=== PATIENT | female | born 1940 | race Caucasian/White ===

== ENCOUNTER 2017-11-10 15:49 | Inpatient (IN) | payer OTHER ==
--- OUTSIDE RECORDS SUMMARY | 2017-11-10 15:51 | XMS REPORT ---
:1940 Author Organization [employer] Care Team Providers Name Role Phone Bernarda Simpson Provider Role Unavailable Allergies, Adverse Reactions, Alerts Substance Reaction Event Type N.K.D.A. Info Not Available Non Drug Allergy Problems Problem Type Condition Code Onset Dates Condition Status Problem Type 2 diabetes mellitus without E11.9 Active complication, unspecified whether signal tester insulin use Problem Uncomplicated asthma, unspecified J45.909 Active asthma severity, unspecified whether persistent Problem Acute memory impairment R41.3 Active Problem Chronic depression F32.9 Active Assessment Muscle weakness M62.81 Active Problem Osteoarthritis of multiple joints, M15.9 Active unspecified osteoarthritis type Assessment Falls frequently R29.6 Active Problem Morbid (severe) obesity due to E66.01 Active excess calories Problem Body mass index (BMI) of 40.0-44.9 Z68.41 Active in adult Problem Dementia arising in the senium and F03.90 Active presenium Problem Hyperlipidemia, unspecified E78.5 Active hyperlipidemia type Problem Edema, unspecified type R60.9 Active Assessment Type 2 diabetes mellitus without E11.9 Active complication, unspecified whether prison insulin use Problem Falls frequently R29.6 Active Assessment Syncope and collapse R55 Active Assessment Essential (primary) hypertension I10 Active Problem Restless legs syndrome G25.81 Active Problem Essential (primary) hypertension I10 Active Problem Disc disorder M51.9 Active Problem Cough R05 Active Problem Acute upper respiratory infection J06.9 Active Problem Other specified diabetes mellitus E13.42 Active with diabetic polyneuropathy, unspecified whether signal tester insulin use Medications Medication Code Code Instructions Start End Status Dosage System Date Date Zoloft ND 24911980006 100 MG Orally May 12, Active 1 tablet Once a day 2015 Triamcinolone ND 0 0.025 % May 28, Active 1 application & Emollient Externally TID 2014 [place] [facility] 98708945691 10-325 MG May 28, Active 1 tablet as Orally every 6 2014 needed hrs Xarelto ND 99141881115 15 MG Orally Aug 05, Active 1 tablet with Once a day 2014 food Azithromycin NDC 32647761477 250 MG Orally Jul 22, Active 2 tablets on Once a day 2016 the first day, then 1 tablet daily for 4 days Requip NDC 83920126036 0.5 MG Orally May 28, Active 1 tablet 1 to Once a day 2014 3 hours before bedtime Os-Joe Ultra NDC 36297026001 600 MG Orally May 28, Active 1-2 tablet once a day 2014 with meals Lisinopril NDC 81927448353 20 MG Orally Apr Active 1 tablet Once a day 2016 Potassium NDC 35377414285 20 MEQ Orally Active 1 tablet with Chloride ER Once a day food Gabapentin NDC 99489618509 300 MG Orally October Active 1 capsule Once a day , before 2016 bedtime Tessalon Perles NDC 84509957106 100 MG Orally Jul 22, Active 1 capsule as Three times a 2016 needed day Nexium NDC 42904967820 20 MG Orally September Active 1 capsule Once a day 2015 Simvastatin NDC 18080567520 40 MG Orally May 28, Active 1 tablet in Once a day 2014 the evening Exelon 13.3 NDC 88862367943 13.3 MG/24HR May 28, Active 1 patch to Transdermal 2014 skin Once a day Namenda XR NDC 66124279653 28 MG Orally May 28, Active 1 capsule Once a day x 30 2014 days Albuterol ND 74114733611 108 (90 Base) Sep 09, Active 2 puffs as Sulfate HFA MCG/ACT 2016 needed Inhalation every 6 hrs Furosemide NDC 46151709755 20 MG Orally May 28, Active 1 tablet Once a day-a.m. 2014 Ditropan NDC 0 5 MG Orally BID May 28, Active 1 tablet 2014 Zanaflex ND 99007436072 4 MG Orally May 28, Active 1 tablet as Three times a 2014 needed day Rozerem NDC 36894631608 8 MG Orally Jun 13, Active 1 tablet at Once a day 2014 bedtime as needed Results Name Result Date Reference Range Unit Abnormality Flag GLUCOSE FINGER ----Result 102 [id number] Summary Purpose eClinicalWorks Submission
[2017-11-10 16:43] LABS: Absolute Lymphocytes (CBC) 1.8 K/uL (0.7-4.9); Absolute Monocytes 0.5 K/uL (0.1-1.3); Absolute Neutrophil 4.6 K/uL (1.8-8.0); Basophils % 0.5 % (0-1.3); Eosinophils % 1.4 % (0-4.4); Hematocrit 38.3 % (36.0-45.0); Lymphocytes % 26.1 % (15.3-44.8); MCV 88.7 fL (80-100); MPV 8.2 fL (7.6-11.3); Monocytes % 7.2 % (3.3-12.3); RBC Red Blood Cell Count 4.32 M/uL (3.86-4.86)
[2017-11-10 16:57] LABS: Potassium 4.1 mEq/L (3.6-5.0)
[2017-11-10 16:59] LABS: Protime INR 1.57
[2017-11-10 17:03] LABS: Bilirubin Direct 0.1 mg/dL (0-0.2); Bilirubin Total 0.7 mg/dL (0.3-1.2); Magnesium 2.2 mg/dL (1.8-2.5); Protein, Total 6.8 g/dL (6.0-8.3)
--- NOTE | 2017-11-10 17:09 | RAD REPORT ---
EXAM DESCRIPTION: RAD - Pelvis - 11/10/2017 4:55 pm CLINICAL HISTORY: Pelvic pain status post injury FINDINGS: No fracture or dislocation is seen. The bones are osteoporotic. If the patient has clinical symptoms to suggest an occult fracture then M RI be recommended
--- NOTE | 2017-11-10 17:18 | RAD REPORT ---
EXAM DESCRIPTION: CT - Head C Spine Mpr Wo Con - 11/10/2017 4:41 pm CLINICAL HISTORY: Head and neck injury status post fall. Head and neck pain COMPARISON: 2011 MRI brain TECHNIQUE: Computed axial tomography of the head and cervical spine was obtained. Sagittal and coronal reconstruction was performed. All CT scans are performed using dose optimization technique as appropriate and may include automated exposure control or mA/KV adjustment according to patient size. FINDINGS: An intracranial bleed is not seen. The ventricles are normal in caliber. An extra-axial fl uid collection is not noted. Low-density area within the right temporal lobe with adjacent atrophy ma y be secondary to an old infarction. Fluid within the visualized sinuses and mastoids is not seen A cervical fracture is not visualized. No dislocation is noted. Spondylosis involves the cervical spi ne resulting in mild to moderate foraminal stenosis. Mild fullness is present within the posterior right tongue base. IMPRESSION: No acute intracranial abnormality is seen. A cervical fracture is not visualized. If the patient continues to have symptoms to suggest intracra nial /spinal cord pathology then MRI would be recommended Mild fullness within the posterior right tongue base is equivocal for a small mass. CT neck with IV c ontrast would be helpful for further evaluation
--- NOTE | 2017-11-10 17:20 | RAD REPORT ---
EXAM DESCRIPTION: [place] Single View11/10/2017 4:55 pm CLINICAL HISTORY: Chest pain COMPARISON: 2016 FINDINGS: The lungs appear clear of acute infiltrate. The heart is mildly enlarged. The mediastinum is mildly more prominent IMPRESSION: Prominence of the mediastinum most likely representing tortuous vessels appearing more p rominent secondary to positioning and technique. As an aneurysm/lymphadenopathy can have this appeara nce PA and lateral chest series is recommended
[2017-11-10 17:46] LABS: Urine Blood NEGATIVE (NEG); Urine Glucose NEGATIVE (NEG); Urine Protein NEGATIVE (NEG); Urine Specific Gravity <1.005 (1.005-1.030)
--- NOTE | 2017-11-10 17:51 | ER ---
Nurse's Notes [facility] Name: Joyce Mai Age: 77 yrs Sex: Female : 1940 Arrival Date: 11/10/2017 Time: 15:45 Bed 3 Private MD: Diagnosis: Fall;dizziness;transient hypotension;bradycardia Presentation: 11/10 15:51 Presenting complaint: EMS states: Pt seen by home health nurse this morning and was ph fine, this afternoon daughter reports that pt began to feel weak, and dizzy and fell, she took BP and reports 80s systolic, BP 118/76 for EMS, however pt bradycardic at 40 bpm which is abnormal for pt. Transition of care: patient was not received from another setting of care. Onset of symptoms was November 10, 2017. Care prior to arrival: IV initiated. 20 GA, in the left antecubital area, Glucose check: 121. 15:51 Method Of Arrival: EMS: [facility] ph 15:51 Acuity: VIOLETTA 2 ph Historical: - Allergies: 17:55 No Known Allergies; sg - Home Meds: 15:53 furosemide 40 mg Oral tab 1 tab once daily [Active]; esomeprazole magnesium 20 mg oral dm5 cpDR 1 cap once daily [Active]; lisinopril 20 mg Oral tab 1 tab once daily [Active]; memantine oral 28mg oral 1 cap once daily [Active]; ropinirole 0.5 mg oral tab 1 tab nightly [Active]; sertraline 100 mg oral tab 1 tab once daily [Active]; tizanidine 4 mg oral cap 1 cap twice a day [Active]; Xarelto 20 mg oral tab 1 tab once daily [Active]; simvastatin 40 mg Oral tab 1 tab once daily [Active]; gabapentin 300 mg oral cap 1 cap nightly [Active]; CertaVite with Lutein oral [Active]; Triamcinolone Acetonide Topical [Active]; - PSHx: 17:55 Hysterectomy; Tonsillectomy; ; sg - Immunization history:: Adult Immunizations unknown. - Social history:: Smoking status: Patient/guardian denies using tobacco. - Family history:: not pertinent. - Hospitalizations: : No recent hospitalization is reported. Screenin:59 Abuse screen: Denies threats or abuse. Denies injuries from another. Nutritional ph screening: No deficits noted. Tuberculosis screening: No symptoms or risk factors identified. Fall Risk Fall in past 12 months (25 points). Secondary diagnosis (15 points) dementia, IV access (20 points). Ambulatory Aid- None/Bed Rest/Nurse Assist (0 pts). Gait- Weak (10 pts.). Mental Status- Oriented to own ability (0 pts). Total Gross Fall Scale indicates High Risk Score (45 or more points). Fall prevention measures have been instituted. Side Rails Up X 2 Placed Close to Nursing Station Family Present and informed to notify staff if the need to leave the bedside As available patient and family educated on Fall Prevention Program and Strategies. Assessment: 16:06 General: Appears in no apparent distress. comfortable, well groomed, Behavior is calm, ph cooperative, appropriate for age, Denies fever, feeling ill. Pain: Denies pain. Neuro: Level of Consciousness is awake, alert, obeys commands, Oriented to person, place, situation, Reports dizziness, weakness. Cardiovascular: Reports fatigue, lightheadedness, Denies chest pain, nausea, shortness of breath, Capillary refill < 3 seconds in bilateral fingers Patient's skin is warm and dry. Cardiovascular: Pulses are 2+ in right posterior tibial artery and left posterior tibial artery. Respiratory: Airway is patent Respiratory effort is even, unlabored, Respiratory pattern is regular, symmetrical. Derm: Skin is intact, Skin is pink, warm \T\ dry. Musculoskeletal: Circulation, motion, and sensation intact. Range of motion: intact in all extremities. 17:00 Reassessment: Patient appears in no apparent distress at this time. Patient and/or sg family updated on plan of care and expected duration. Pain level reassessed. Patient is alert, oriented x 3, equal unlabored respirations, skin warm/dry/pink. Patient states feeling better. 18:19 Reassessment: Patient appears in no apparent distress at this time. Patient and/or sg family updated on plan of care and expected duration. Pain level reassessed. Patient is alert, oriented x 3, equal unlabored respirations, skin warm/dry/pink. attempted to call report for bed 411, Aydin stated that they just received a patient and the assignment has not been made, instructed to wait, pt and pt family updated on current status, stated understanding Patient states feeling better. 19:10 General: Appears in no apparent distress. comfortable, Behavior is calm, cooperative, tl2 appropriate for age, Denies feeling ill. Pain: Denies pain. Neuro: Level of Consciousness is awake, alert, obeys commands, Oriented to person, place, time, situation. Neuro: Reports dizziness. Cardiovascular: Denies chest pain. Cardiovascular: Rhythm is sinus bradycardia. Respiratory: Airway is patent Respiratory effort is even, unlabored, Respiratory pattern is regular, symmetrical. GI: No signs and/or symptoms were reported involving the gastrointestinal system. : No signs and/or symptoms were reported regarding the genitourinary system. Derm: Skin is pink, warm \T\ dry. 20:46 Reassessment: Patient appears in no apparent distress at this time. Patient and/or tl2 family updated on plan of care and expected duration. Pain level reassessed. Patient is alert, oriented x 3, equal unlabored respirations, skin warm/dry/pink. Pt stable and ready for transport to floor. Vital Signs: 15:57 BP 112 / 59; Pulse 41; Resp 18; Temp 98.0; Pulse Ox 100% on 2 lpm NC; Weight 102.06 kg; ph Height 5 ft. 3 in. (160.02 cm); 18:00 Pulse 46; Resp 19; Pulse Ox 98% ; Pain 0/10; sg 20:02 BP 140 / 94; Pulse 50; Resp 16; Pulse Ox 100% on 2 lpm NC; tl2 15:57 Body Mass Index 39.86 (102.06 kg, 160.02 cm) ph [place] Coma Score: 18:00 Eye Response: spontaneous(4). Verbal Response: oriented(5). Motor Response: obeys sg commands(6). Total: 15. ED Course: 15:45 Patient arrived in ED. dm5 15:49 Nima Lim MD is Attending Physician. wa 15:56 Triage completed. ph 15:58 Arm band placed on. ph 16:01 Patient has correct armband on for positive identification. Bed in low position. Call ph light in reach. Side rails up X 1. bus driver/monitor on. Pulse ox on. NIBP on. Warm blanket given. 16:06 Alisha Suresh RN is Primary Nurse. ph 16:10 Maintain EMS IV. Dressing intact. Good blood return noted. Site clean \T\ dry. Gauge \T\ sg site: 20 LAC. 16:20 Initial lab(s) drawn, by me, sent to lab. sg 16:20 No provider procedures requiring assistance completed. sg 16:40 CT Head C Spine In Process Unspecified. EDMS 16:51 X-ray completed. Patient tolerated procedure well. bb2 16:52 Patient moved back from CT. Patient moved back from radiology. bb2 16:52 Chest Single View XRAY In Process Unspecified. EDMS 16:52 Pelvis XRAY In Process Unspecified. EDMS 17:49 Fransisco Lezama MD is Hospitalizing Provider. wa 18:20 Patient admitted, IV remains in place. intact, No redness/swelling at site. sg Administered Medications: 17:54 Not Given (Patient Refused): Tylenol 1000 mg PO once sg Outcome: 17:50 Decision to Hospitalize by Provider. wa 20:46 Admitted to Tele accompanied by tech, via stretcher, room 411, with oxygen, with chart, tl2 Report called to YAN Givens 20:46 Condition: stable 20:46 Discharge instructions given to patient, Instructed on the need for admit. 20:48 Patient left the ED. tl2 Signatures: Dispatcher [employer] Guera Crisostomo RN RN dm5 Fidel Lange RN YAN Alisha Suresh RN YAN Alison Falcon RN RN tl2 Nima Lim MD MD wa Bock, Brittany bb2 Corrections: (The following items were deleted from the chart) 18:31 18:10 Maintain EMS IV. Dressing intact. Good blood return noted. Site clean \T\ dry. sg Gauge \T\ site: 20 LAC. sg 18:31 15:30 Initial lab(s) drawn, by me, sent to lab. sg sg
--- NOTE | 2017-11-10 17:51 | EDPHYS ---
Physician Documentation [facility] Name: Joyce Mai Age: 77 yrs Sex: Female : 1940 Arrival Date: 11/10/2017 Time: 15:45 Bed 3 Private MD: ED Physician Nima Lim HPI: 11/10 17:02 This 77 yrs old Female presents to ER via EMS with complaints of Dizziness. 17:02 This 77 yrs old Female presents to ER via EMS with complaints of Dizziness. 17:02 The patient presents with pt apparently became dizzy and weak and fell. per EMS, pt was wa noted with low BP and HR at their arrival. pt denies pain in ED. admits to mild SOB. denies dizziness on direct query. Onset: The symptoms/episode began/occurred just prior to arrival. Context: occurred at home, occurred while the patient was standing, just prior to the episode the patient experienced no apparent symptoms. Modifying factors: The symptoms are alleviated by nothing, the symptoms are aggravated by nothing. Associated signs and symptoms: Pertinent positives: shortness of breath, fall, Pertinent negatives: abdominal pain, agitation, headache. Severity of symptoms: At their worst the symptoms were moderate in the emergency department the symptoms are unchanged. Patient's baseline: Neuro: alert and fully oriented, Motor: no deficits, Ambulation: walks without assistance, Speech: normal. It is unknown whether or not the patient has had similar symptoms in the past. The patient has not recently seen a physician. Historical: - Allergies: 17:55 No Known Allergies; sg - Home Meds: 15:53 furosemide 40 mg Oral tab 1 tab once daily [Active]; esomeprazole magnesium 20 mg oral dm5 cpDR 1 cap once daily [Active]; lisinopril 20 mg Oral tab 1 tab once daily [Active]; memantine oral 28mg oral 1 cap once daily [Active]; ropinirole 0.5 mg oral tab 1 tab nightly [Active]; sertraline 100 mg oral tab 1 tab once daily [Active]; tizanidine 4 mg oral cap 1 cap twice a day [Active]; Xarelto 20 mg oral tab 1 tab once daily [Active]; simvastatin 40 mg Oral tab 1 tab once daily [Active]; gabapentin 300 mg oral cap 1 cap nightly [Active]; CertaVite with Lutein oral [Active]; Triamcinolone Acetonide Topical [Active]; - PSHx: 17:55 Hysterectomy; Tonsillectomy; ; sg - Immunization history:: Adult Immunizations unknown. - Social history:: Smoking status: Patient/guardian denies using tobacco. - Family history:: not pertinent. - Hospitalizations: : No recent hospitalization is reported. ROS: 17:06 Constitutional: Negative for fever, chills, and weight loss, Eyes: Negative for injury, wa pain, redness, and discharge, ENT: Negative for injury, pain, and discharge, Neck: Negative for injury, pain, and swelling, Cardiovascular: Negative for chest pain, palpitations, and edema, Abdomen/GI: Negative for abdominal pain, nausea, vomiting, diarrhea, and constipation, Back: Negative for injury and pain, : Negative for injury, bleeding, discharge, and swelling, MS/Extremity: Negative for injury and deformity, Skin: Negative for injury, rash, and discoloration, Psych: Negative for depression, anxiety, suicide ideation, homicidal ideation, and hallucinations. 17:06 Respiratory: Positive for shortness of breath, Negative for cough, dyspnea on exertion. 17:06 Neuro: Positive for dizziness, Negative for altered mental status, headache, loss of consciousness, syncope. 17:06 All other systems are negative. Exam: 17:07 Constitutional: This is a well developed, well nourished patient who is awake, alert, wa and in no acute distress. Head/Face: Normocephalic, atraumatic. Eyes: Pupils equal round and reactive to light, extra-ocular motions intact. Lids and lashes normal. Conjunctiva and sclera are non-icteric and not injected. Cornea within normal limits. Periorbital areas with no swelling, redness, or edema. ENT: Nares patent. No nasal discharge, no septal abnormalities noted. Tympanic membranes are normal and external auditory canals are clear. Oropharynx with no redness, swelling, or masses, exudates, or evidence of obstruction, uvula midline. Mucous membranes moist. Neck: Trachea midline, no thyromegaly or masses palpated, and no cervical lymphadenopathy. Supple, full range of motion without nuchal rigidity, or vertebral point tenderness. No Meningismus. Chest/axilla: Normal chest wall appearance and motion. Nontender with no deformity. No lesions are appreciated. Respiratory: Lungs have equal breath sounds bilaterally, clear to auscultation and percussion. No rales, rhonchi or wheezes noted. No increased work of breathing, no retractions or nasal flaring. Abdomen/GI: Soft, non-tender, with normal bowel sounds. No distension or tympany. No guarding or rebound. No evidence of tenderness throughout. Back: No spinal tenderness. No costovertebral tenderness. Full range of motion. Skin: Warm, dry with normal turgor. Normal color with no rashes, no lesions, and no evidence of cellulitis. MS/ Extremity: Pulses equal, no cyanosis. Neurovascular intact. Full, normal range of motion. Neuro: Awake and alert, GCS 15, oriented to person, place, time, and situation. Cranial nerves II-XII grossly intact. Motor strength 5/5 in all extremities. Sensory grossly intact. Cerebellar exam normal. Normal gait. 17:07 Cardiovascular: Rate: bradycardic, Rhythm: regular, Pulses: no pulse deficits are appreciated, Heart sounds: normal, Edema: is not appreciated, JVD: is not appreciated. Vital Signs: 15:57 BP 112 / 59; Pulse 41; Resp 18; Temp 98.0; Pulse Ox 100% on 2 lpm NC; Weight 102.06 kg; ph Height 5 ft. 3 in. (160.02 cm); 18:00 Pulse 46; Resp 19; Pulse Ox 98% ; Pain 0/10; sg 20:02 BP 140 / 94; Pulse 50; Resp 16; Pulse Ox 100% on 2 lpm NC; tl2 15:57 Body Mass Index 39.86 (102.06 kg, 160.02 cm) ph Maude Coma Score: 18:00 Eye Response: spontaneous(4). Verbal Response: oriented(5). Motor Response: obeys sg commands(6). Total: 15. MDM: 15:49 Patient medically screened. wa 17:08 Differential diagnosis: cardiac arrhythmia, CVA, generalized weakness, hypovolemia, wa idiopathic dizziness, near-syncope. 17:30 Data reviewed: vital signs, nurses notes, lab test result(s), EKG, radiologic studies. wa Test interpretation: by ED physician or midlevel provider: EKG: noted for HR 44. marked sinus bradycardia. head and C-spine CT: no acute process. pelvic x-ray: no fx. CXR: no acute process. Response to treatment: the patient's symptoms have markedly improved after treatment. Physician consultation:. 17:45 Test interpretation: by ED physician or midlevel provider: labs noted wnl. CXR, pelvic wa x-ray, head and c-spine CT noted with no acute process. will admit for obs. Physician consultation: Fransisco Lezama MD was contacted at 17:48. Admission orders: after a detailed discussion of the patient's condition and case, the admit orders are written by md. 11/10 16:16 Order name: Urine Microscopic Only; Complete Time: 19:01 11/10 16:16 Order name: Basic Metabolic Panel; Complete Time: 17:11/10 16:16 Order name: BNP; Complete Time: 17:11/10 16:16 Order name: CBC with Diff; Complete Time: 17:11/10 16:16 Order name: CPK; Complete Time: 17:11/10 16:16 Order name: Hepatic Function; Complete Time: 17:11/10 16:16 Order name: CT Head C Spine; Complete Time: 17:11/10 16:16 Order name: Lipase; Complete Time: 17:11/10 16:16 Order name: Magnesium; Complete Time: 17:11/10 16:16 Order name: Protime (+inr); Complete Time: 17:11/10 16:16 Order name: Troponin (emerg Dept Use Only); Complete Time: 17:11/10 16:16 Order name: Chest Single View XRAY; Complete Time: 17:11/10 16:16 Order name: Pelvis XRAY; Complete Time: 17:11/10 17:26 Order name: Urine Dipstick--Ancillary (enter results) [facility] 11/10 16:16 Order name: EKG; Complete Time: 16:16 11/10 16:16 Order name: Cardiac monitoring; Complete Time: 16:46 11/10 16:16 Order name: EKG - Nurse/Tech; Complete Time: 17:30 11/10 16:16 Order name: IV Saline Lock; Complete Time: 16:46 11/10 16:16 Order name: Labs collected and sent; Complete Time: 16:47 wv 11/10 16:16 Order name: NPO; Complete Time: 16:47 wv 11/10 16:16 Order name: O2 Per Protocol; Complete Time: 16: wv 11/10 16:16 Order name: O2 Sat Monitoring; Complete Time: 16:47 wv 11/10 16:16 Order name: Urine Dipstick-Ancillary (obtain specimen); Complete Time: 19:06 wv 11/10 17:54 Order name: Regular EDMS 11/10 17:57 Order name: Echo with Doppler EDMS Administered Medications: 17:54 Not Given (Patient Refused): Tylenol 1000 mg PO once sg Disposition: 11/10/17 17:50 Hospitalization ordered by Fransisco Lezama for Observation. Preliminary diagnosis are Fall, dizziness, transient hypotension, bradycardia. - Bed requested for Telemetry/MedSurg (observation). - Status is Observation. tl2 - Condition is Stable. - Problem is new. - Symptoms have improved. UTI on Admission? No Signatures: Dispatcher [employer] EDGuera Martin, RN RN dm5 Yojana Berger RN RN Fidel Holbrook RN RN sg Hall, Patricia, RN RN Alison Falcon RN RN tl2 Nima Lim MD MD wv
[2017-11-10 18:08] LABS: Urine Amorphous Sediment 2+ /HPF (NONE SEEN); Urine Bacteria NONE SEEN /HPF (<20); Urine RBC NONE SEEN /HPF (NONE SEEN)
[2017-11-10 18:09] LABS: Urine Culture Reflex Order NOT NEEDED
[2017-11-10] MEDS ORDERED: ENOXAPARIN 30 MG/0.3 ML SQ SCH (21:00)
[2017-11-10 21:08] VITALS: BMI 39.2
[2017-11-10] MEDS: PANTOPRAZOLE 40MG TABLET PO SCH (22:15)
[2017-11-11] MEDS: ACETAMINOPHEN 500 MG TAB PO PRN ×2 (02:53→19:56)
[2017-11-11] MEDS: PANTOPRAZOLE 40MG TABLET PO SCH (05:32)
[2017-11-11] MEDS: FUROSEMIDE 20 MG TABLET PO SCH (08:55)
[2017-11-11] MEDS: hydroCHLOROthiazide 12.5 MG CAP PO SCH (08:55)
[2017-11-11] MEDS: HOME MED 1 EA UNK (Memantine Hcl [Namenda Xr] 1 CAP) PO SCH (08:56)
[2017-11-11] MEDS: SERTRALINE HCL 100 MG TAB PO SCH (08:56)
[2017-11-11] MEDS: LISINOPRIL 20 MG TAB PO SCH (08:56)
[2017-11-11] MEDS ORDERED: HOME MED 1 EA UNK (Simvastatin [Zocor] 40 MG) PO SCH (09:00)
[2017-11-11] MEDS ORDERED: LISINOPRIL PO SCH (09:00)
[2017-11-11] MEDS ORDERED: HYDROCHLOROTHIAZIDE PO SCH (09:00)
[2017-11-11] MEDS ORDERED: D50W 25 GM/50 ML SYRINGE IV PRN (09:05)
[2017-11-11] MEDS ORDERED: GLUCAGON 1 MG/VIAL IM PRN (09:05)
--- NOTE | 2017-11-11 09:27 | P.HP ---
Certification for Inpatient Patient admitted to: Inpatient With expected LOS: >2 Midnights Patient will require the following post-hospital care: None Practitioner: I am a practitioner with admitting privileges, knowledge of patient current condition, hospital course, and medical plan of care. Services: Services provided to patient in accordance with Admission requirements found in Title 42 Section 412.3 of the Code of Federal Regulations Patient History Date of Service: 11/11/17 Primary Care Provider: Dina Simpson Reason for admission: syncope History of Present Illness: Patient is a pleasant 77 year old patient of Dina Simpson. She has a history of diabetes with polyneuropathy. She has been having tiredness and dizzy spells for the past few weeks. The patient had a dizzy spell yesterday resulting in a fall. She also complaints of generalized fatigue as well as occasional shortness of breath at rest. She was found to have a heart rate in the 40's by ems. She has stayed in the 40-50 range throughout the night. She has no reported chest pain or palpations. Allergies No Known Allergies Allergy (Verified 11/24/12 12:22) Home Medications: RX: Hydrocodone Bit/Acetaminophen [Hydrocodon-Acetaminophn 10-325] 1 each PO QID 11/25/12 RX: Lisinopril/Hydrochlorothiazide [Zestoretic 20-12.5 Tablet] 1 each PO DAILY 11/25/12 RX: Ropinirole HCl [Requip*] 0.5 tab PO BEDTIME 11/25/12 RX: Tizanidine [Zanaflex*] 4 mg PO BID 11/25/12 Simvastatin [Zocor] 40 mg PO DAILY 11/25/12 Esomeprazole Magnesium [Esomeprazole Magnesium] 1 cap PO DAILY 11/11/17 Furosemide [Furosemide] 1 tab PO DAILY 11/11/17 Memantine HCl [Namenda Xr] 1 cap PO DAILY 11/11/17 RX: Gabapentin [Neurontin*] 1 cap PO BEDTIME 11/11/17 Rivaroxaban [Xarelto] 1 tab PO BEDTIME 11/11/17 Sertraline [Zoloft] 100 mg PO DAILY 11/11/17 - Past Medical/Surgical History Has patient received pneumonia vaccine in the past: Yes Diabetic: Yes -: NIDDM -: hysterectomy -: tonsillectomy -: - Family History Father History Unknown: Yes Mother History Unknown: Yes - Social History Smoking Status: Never smoker Alcohol use: No CD- Drugs: No Caffeine use: Yes Place of Residence: Home Review of Systems 10-point ROS is otherwise unremarkable Cardiovascular: Light Headedness Physical Examination - Vital Signs Temperature: 98.4 F Blood Pressure: 104/62 Pulse: 49 Respirations: 18 Pulse Ox (%): 97 - Physical Exam General: Alert, In no apparent distress HEENT: Atraumatic, PERRLA, Mucous membr. moist/pink, EOMI, Sclerae nonicteric Neck: Supple, 2+ carotid pulse no bruit, No LAD, Without JVD or thyroid abnormality Respiratory: Clear to auscultation bilaterally, Normal air movement Cardiovascular: Regular rate/rhythm, Normal S1 S2 Gastrointestinal: Normal bowel sounds, No tenderness Musculoskeletal: No tenderness Integumentary: No rashes Neurological: Normal gait, Normal speech, Normal strength at 5/5 x4 extr, Normal tone, Normal affect Lymphatics: No axilla or inguinal lymphadenopathy - Studies Laboratory Data (last 24 hrs) 11/10/17 16:15: PT 18.6 H, INR 1.57 11/10/17 16:15: WBC 7.0, Hgb 13.0, Hct 38.3, Plt Count 177 11/10/17 16:15: B-Natriuretic Peptide 33 11/10/17 16:15: Sodium 136, Potassium 4.1, BUN 30 H, Creatinine 1.30 H, Glucose 107, Magnesium 2.2, Total Bilirubin 0.7, AST 17, ALT 12, Alkaline Phosphatase 63 , Lipase 73 H Assessment and Plan - Problems (Diagnosis) (1) Bradycardia Current Visit: Yes Status: Acute Plan: Will consult with Dr. Monterroso. As she has been having a sustained bradycardia this is woresome. She should have a work up. Will check a echocardiogram. May need a cardiac work up. (2) Diabetes Current Visit: Yes Status: Acute Plan: Will start her on a mild sliding scale insulin. She has not been on medications. Will check a A1c. 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 Will adjust as necessary. Qualifiers: Hypertension type: essential hypertension Qualified Code(s): I10 - Essential (primary) hypertension (4) Dementia Current Visit: Yes Status: Acute Plan: On namenda and zoloft. She is answering questions appropriate. Will have PT work with her. Qualifiers: Dementia type: Alzheimer's disease Discharge Plan: Home Plan to discharge in: Greater than 2 days - Advance Directives Does patient have a Living Will: Yes Does patient have a Durable POA for Healthcare: Yes - Code Status/Comfort Care Code Status Assessed: No Code Status: Full Code Physician Review: Patient Assessed, Agree with Above Assessment and Plan Critical Care: No Time Spent Managing Pts Care (In Minutes): 55
[2017-11-11] MEDS: INSULIN -REGULAR HUMAN 50 UNIT/0.5 ML ML SQ SCH ×3 (11:30→21:00)
[2017-11-11] MEDS ORDERED: RIVAROXABAN 20 MG TABLET PO SCH (17:00)
[2017-11-11] MEDS ORDERED: GABAPENTIN 300 MG CAP PO SCH (21:00)
[2017-11-11] MEDS ORDERED: ATORVASTATIN 20 MG TAB PO SCH (21:00)
[2017-11-11] MEDS ORDERED: ROPINIROLE HCL 1 MG TAB PO SCH (21:00)
[2017-11-11 21:52] VITALS: O2SAT 95
[2017-11-12] MEDS: PANTOPRAZOLE 40MG TABLET PO SCH (05:48)
[2017-11-12 07:10] LABS: Absolute Lymphocytes (CBC) 1.6 K/uL (0.7-4.9); Absolute Monocytes 0.6 K/uL (0.1-1.3); Absolute Neutrophil 2.8 K/uL (1.8-8.0); Basophils % 0.7 % (0-1.3); Eosinophils % 2.8 % (0-4.4); Hematocrit 37.9 % (36.0-45.0); Lymphocytes % 31.7 % (15.3-44.8); MCH 29.9 pg (27.0-35.0); MPV 8.3 fL (7.6-11.3); Monocytes % 11.1 % (3.3-12.3); RBC Red Blood Cell Count 4.26 M/uL (3.86-4.86)
[2017-11-12 07:27] LABS: Magnesium 2.3 mg/dL (1.8-2.5); Thyroid Stimulating Hormone 1.75 uIU/mL (0.34-5.60)
[2017-11-12] MEDS: INSULIN -REGULAR HUMAN 50 UNIT/0.5 ML ML SQ SCH ×2 (07:30→11:30)
[2017-11-12 08:07] LABS: A1c Component 0.55 mg/dL; Hemoglobin A1c 5.9 % (4-6.0)
--- NOTE | 2017-11-12 08:20 | P.PN ---
Subjective Date of Service: 11/12/17 Primary Care Provider: Dina Simpson Chief Complaint: syncope Subjective: No new changes (complaints of intermittent sob and dizziness at rest ) Review of Systems 10-point ROS is otherwise unremarkable Respiratory: Other (sob at rest) Physical Examination - Vital Signs Temperature: 97.6 F Blood Pressure: 138/69 Pulse: 52 Respirations: 18 Pulse Ox (%): 95 - Physical Exam General: Alert, In no apparent distress HEENT: Atraumatic, PERRLA, EOMI Neck: Supple, JVD not distended Respiratory: Clear to auscultation bilaterally, Normal air movement Cardiovascular: Regular rate/rhythm, Normal S1 S2 Gastrointestinal: Normal bowel sounds, No tenderness Musculoskeletal: No tenderness Integumentary: No rashes Neurological: Normal speech, Normal tone, Normal affect Lymphatics: No axilla or inguinal lymphadenopathy Assessment & Plan - Problems (Diagnosis) (1) Symptomatic sinus bradycardia Current Visit: Yes Status: Acute Plan: Patient is having shortness of breath at rest. Reported dizziness when sitting at the side of the bed. She stays in the 40-50's at rest. Will change to inpatient. Check an echocardiogram. Consult to Dr. Monterroso (2) Diabetes Current Visit: Yes Status: Acute Plan: Will start her on a mild sliding scale insulin. She has not been on medications. Will check a A1c. 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 Will adjust as necessary. Qualifiers: Hypertension type: essential hypertension Qualified Code(s): I10 - Essential (primary) hypertension (4) Dementia Current Visit: Yes Status: Acute Plan: On namenda and zoloft. She is answering questions appropriate. Will have PT work with her. Qualifiers: Dementia type: Alzheimer's disease Discharge Plan: Home Plan to discharge in: Greater than 2 days - Code Status/Comfort Care Code Status Assessed: No Code Status: Full Code Physician Review: Patient Assessed, Agree with Above Assessment and Plan Critical Care: No Time Spent Managing Pts Care (In Minutes): 25
[2017-11-12] MEDS: LISINOPRIL 20 MG TAB PO SCH (08:59)
[2017-11-12] MEDS: hydroCHLOROthiazide 12.5 MG CAP PO SCH (09:00)
[2017-11-12] MEDS: HOME MED 1 EA UNK (Memantine Hcl [Namenda Xr] 1 CAP) PO SCH (09:00)
[2017-11-12] MEDS: SERTRALINE HCL 100 MG TAB PO SCH (09:00)
[2017-11-12] MEDS: FUROSEMIDE 20 MG TABLET PO SCH (09:00)
[2017-11-12] MEDS: ACETAMINOPHEN 500 MG TAB PO PRN (09:07)
[2017-11-12 13:01] VITALS: BP 149/72
[2017-11-12 13:20] VITALS: TEMP 97
--- NOTE | 2017-11-12 14:05 | CON ---
Date of Consultation: 11/11/2017 Reason For Consultation: Symptomatic bradycardia. History Of Present Illness: Ms. Mai is a 77-year-old woman. She came into the emergency room c omplaining mostly of dizziness. She denied any syncope, but did have an episode of weakness and fall ing, was noted to have a low blood pressure and low heart rate on arrival and had really no chest sharon n. She has some mild shortness of breath. Episode occurred when she was standing up. Denies nausea , vomiting, diaphoresis, PND, orthopnea, pedal edema, or palpitations. Normally walks without assist ance. Allergies: NONE. Review of Systems: Negative. Social History: Negative. Family History: Noncontributory. Past Medical History: Include gastroesophageal reflux disease, hypertension, atrial fibrillation, ne uropathy, and dyslipidemia. Medications: Include Lasix, Prilosec, lisinopril, ropinirole, sertraline, tizanidine, and Xarelto 20 mg daily. She is on gabapentin as well. Past Surgical History: Includes hysterectomy, tonsillectomy, and . Review of Systems: Negative. Social History: Negative. Family History: Negative. Physical Examination: Vital Signs: Stable. Her blood pressure was 132/61. Her pulse initially was 46. When I saw her, i t was 68. She was in sinus rhythm, afebrile, respiratory rate was 18. I's and O's were adequate. O 2 saturation was 95% on room air. She had a creatinine 1.03. Hemoglobin was 12.8. Her white count was normal. INR 1.57. Glucose was 146. Troponin, CPKs, and MBs were all negative. She had a sligh tly elevated lipase. Chest x-ray showed prominence of the mediastinal area, most likely a tortuous b lood vessels. She had head and cervical spine CT, which were negative. A pelvic x-ray was positive for osteoporosis, but no fracture. Recent echocardiogram was normal with mild pulmonary hypertension . Impression And Plan: Weakness and dizziness and falling spells that occurred while the patient was s tanding. I do not really think this is secondary to her bradycardia. I think this is more likely re lated to orthostatic hypotension. She is on Lasix and lisinopril and takes many other medication inc luding sertraline, tizanidine, gabapentin, and ropinirole. Most of those can exacerbate orthostatic hypotension. She is in normal sinus rhythm right now and asymptomatic and I feel that she can go sabra e whenever it is okay with Dr. Lezama. I would like to see her in the office and get a 48-hour Holter monitor on her to see if we can detect any arrhythmias or maybe even get an event monitor. If she h as significant bradycardia, we will consider a pacemaker. She is not on beta blockers or calcium blo ckers and I will keep it this away for now. She is on Xarelto for paroxysmal atrial fibrillation, bu t she has been in sinus rhythm. I will continue that medicine. She can certainly go home whenever i t is okay with Dr. Lezama. I would not repeat any cardiac workup [facility] I believe an echocardiogram has already been ordered. OUMAR/AMEENA Voice ID: [id number] Report ID: [id number]
--- NOTE | 2017-11-13 08:58 | P.DS ---
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 She has a history of diabetes with polyneuropathy. She has been having tiredness and dizzy spells for the past few weeks. The patient had a dizzy spell yesterday resulting in a fall. She also complaints of generalized fatigue as well as occasional shortness of breath at rest. She was found to have a heart rate in the 40's by ems. She has stayed in the 40-50 range throughout the night. She has no reported chest pain or palpations. Hospital Course: patient was seen by Dr. Monterroso. She had a normal echo. Plan to discharge. Follow up in Dr. Monterroso's office to put an event monitor on the patient. Will have her follow up with Pascual Simpson Vital Signs/Physical Exam: Temp Pulse Resp BP Pulse Ox 97.0 F 61 18 149/72 H 96 11/12/17 12:00 11/12/17 12:59 11/12/17 12:00 11/12/17 12:59 11/12/17 12:00 General: Alert, In no apparent distress HEENT: Atraumatic, PERRLA, EOMI Neck: Supple, JVD not distended Respiratory: Clear to auscultation bilaterally, Normal air movement Cardiovascular: Regular rate/rhythm, Normal S1 S2 Gastrointestinal: Normal bowel sounds, No tenderness Musculoskeletal: No tenderness Integumentary: No rashes Neurological: Normal speech, Normal tone, Normal affect Lymphatics: No axilla or inguinal lymphadenopathy Laboratory Data at Discharge: WBC 5.2 K/uL (4.3-10.9) D 11/12/17 05:36 Hgb 12.8 g/dL (12.0-15.0) 11/12/17 05:36 Hct 37.9 % (36.0-45.0) 11/12/17 05:36 Plt Count 166 K/uL (152-406) 11/12/17 05:36 PT 18.6 SECONDS (9.5-12.5) H 11/10/17 16:15 INR 1.57 11/10/17 16:15 Sodium 136 mEq/L (135-145) 11/11/17 09:05 Potassium 4.0 mEq/L (3.6-5.0) 11/11/17 09:05 BUN 21 mg/dL (6-20) H 11/11/17 09:05 Creatinine 1.03 mg/dL (0.44-1.00) H 11/11/17 09:05 Glucose 146 mg/dL (65-120) H 11/11/17 09:05 Magnesium 2.3 mg/dL (1.8-2.5) 11/12/17 05:36 Total Bilirubin 0.7 mg/dL (0.3-1.2) 11/10/17 16:15 AST 17 IU/L (10-42) 11/10/17 16:15 ALT 12 IU/L (10-60) 11/10/17 16:15 Alkaline Phosphatase 63 IU/L (42-121) 11/10/17 16:15 B-Natriuretic Peptide 33 pg/ml (<=100) 11/10/17 16:15 Lipase 73 U/L (22-51) H 11/10/17 16:15 Home Medications: Hydrocodone Bit/Acetaminophen [Hydrocodon-Acetaminophn 10-325] 1 each PO QID Lisinopril/Hydrochlorothiazide [Zestoretic 20-12.5 Tablet] 1 each PO DAILY 11/25 Ropinirole HCl [Requip*] 0.5 tab PO BEDTIME 11/25/12 Simvastatin [Zocor] 40 mg PO DAILY 11/25/12 Tizanidine [Zanaflex*] 4 mg PO BID 11/25/12 Esomeprazole Magnesium [Esomeprazole Magnesium] 1 cap PO DAILY 11/11/17 Furosemide [Furosemide] 1 tab PO DAILY 11/11/17 Gabapentin [Neurontin*] 1 cap PO BEDTIME 11/11/17 Memantine HCl [Namenda Xr] 1 cap PO DAILY 11/11/17 Rivaroxaban [Xarelto] 15 mg PO DAILY 11/11/17 Sertraline [Zoloft] 100 mg PO DAILY 11/11/17 Albuterol Sulfate [Ventolin Hfa] 2 puff IH Q6HP PRN 11/12/17 Esomeprazole Magnesium [Nexium] 20 mg PO DAILY 11/12/17 Hydrocodone/Acetaminophen [Hydrocodon-Acetaminophn 10-325] 1 each PO Q6HP PRN Oxybutynin Chloride [Ditropan Xl] 5 mg PO BID 11/12/17 Potassium Chloride 20 meq PO DAILY 11/12/17 Ramelteon [Rozerem] 8 mg PO BEDTIME PRN 11/12/17 Rivastigmine Patch [Exelon 9.5 mg Patch] 13.3 mg TD DAILY 11/12/17 Triamcinolone 0.025% Crm [Kenalog 0.025% Cream*] 1 courtney TOP TID 11/12/17 Diet: ADA Activity: Ad ophelia Followup: Tobin Monterroso MD [ACTIVE - CAN ADMIT] - 1 Day (follow up in the office on Tuesday) Dina Simpson NP [Primary Care Provider] - 1 Week (call office to make an appointment in 1 week) Time spent managing pt's care (in minutes): 55
--- NOTE | 2017-11-13 22:48 | EKG ---
Test Date: 2017-11-10 Test Time: 17:16:06 Toll Collector Supervisor: SUZIE MEASUREMENT RESULTS: Intervals: Rate: 44 MS: 168 QRSD: 98 QT: 504 QTc: 430 [place]: P: 48 MS: 168 QRS: 14 T: 9 INTERPRETIVE STATEMENTS: Marked sinus bradycardia Abnormal ECG Compared to ECG 11/24/2012 14:36:21 Sinus rhythm no longer present Myocardial infarct finding no longer present Electronically Signed On 11-13-17 22:48:17 CDT by Abhi Arguello
--- NOTE | 2017-11-14 07:52 | ECHO ---
HEIGHT: 5 ft 3 in WEIGHT: 221 lb 1.6 oz DATE OF STUDY: 11/11/[address]: Nima Lim MD 2-DIMENSIONAL: YES M.MODE: YES DOPPLER: YES COLOR FLOW: YES TDS: NO PORTABLE: NO DEFINITY: NO BUBBLE STUDY: NO DIAGNOSIS: BRADYCARDIA, DIZZINESS CARDIAC HISTORY: CATHERIZATION: NO SURGERY: NO PROSTHETIC VALVE: NO PACEMAKER: NO MEASUREMENTS (cm) DIASTOLIC (NORMALS) SYSTOLIC (NORMALS) IVSd 1.1 (0.6-1.2) LA Diam 3.9 (1.9-4.0) LVEF 56% LVIDd 3.6 (3.5-5.7) LVIDs 2.6 (2.0-3.5) %FS 28% LVPWd 1.2 (0.6-1.2) Ao Diam 3.2 (2.0-3.7) 2 DIMENSIONAL ASSESSMENT: RIGHT ATRIUM: NORMAL LEFT ATRIUM: NORMAL RIGHT VENTRICLE: NORMAL LEFT VENTRICLE: NORMAL TRICUSPID VALVE: NORMAL MITRAL VALVE: MITRAL ANNULAR CALCIFICATION PULMONIC VALVE: NORMAL AORTIC VALVE: NORMAL PERICARDIAL EFFUSION: NONE AORTIC ROOT: NORMAL LEFT VENTRICULAR WALL MOTION: NORMAL DOPPLER/COLOR FLOW: MILD TRICUSPID REGURGITATION. COMMENTS: MILD TRICUSPID REGURGITATION. MITRAL ANNULAR CALCIFICATION. NORMAL LEFT VENTRICULAR SIZE AND FUNCTION. TECHNOLOGIST: Maryam VOGEL
== END 2017-11-12 14:28 | disposition home or self-care (01) | DRG 310 ==
LOC: ER 15:49 → ERHOLD 20:03 → OBSVTOIN 20:03 → INTOOBSV 20:03 → 4TH 20:05 → OBSVTOIN 11-11 08:13
PROVIDERS: ADMIT Internal Medicine; ATTEND Internal Medicine
DX: R00.1 Bradycardia, unspecified (principal); E11.9 Type 2 diabetes mellitus without complications; I10 Essential (primary) hypertension; F03.90 Unspecified dementia, unspecified severity, without behavioral disturbance, psychotic disturbance, mood disturbance, and anxiety
CPT/HCPCS: 36415; 70450; 71045; 72125; 72170; 80048; 80076; 81003; 81015; 82550; 82962; 83036; 83690; 83735; 83880; 84145; 84443; 84484; 85025; 85610; 93005; 93306; 97163; 99285; J1650